=== PATIENT | male | born 1990 | race Caucasian/White ===

== ENCOUNTER → 2017-01-23 | Outpatient (CLI) | payer OTHER ==
--- NOTE | 2017-01-23 13:12 | RAD ---
EXAM: Right lower extremity venous Doppler. HISTORY: Right lower extremity pain/swelling. History of portal vein thrombosis. COMPARISON: None. FINDINGS: Grayscale and Doppler analysis of the right lower extremity deep venous system was performed with graded compression and augmentation. The common femoral, greater saphenous, superficial femoral, popliteal and calf veins were assessed. There is occlusive thrombus within the mid superficial femoral vein extending through the popliteal vein to the posterior tibial vein. There is no thrombus more proximally. IMPRESSION: 1. Occlusive thrombus within the mid superficial femoral vein extending to the posterior tibial veins. These findings were called to Dr. Degroot by Dev Yeboah on 01/23/2017 at 1300.
== END | disposition home or self-care (01) ==
LOC: US 12:15
PROVIDERS: ATTEND Physician Assistant Medical
DX: I81 Portal vein thrombosis (principal); R60.0 Localized edema; L53.9 Erythematous condition, unspecified
CPT/HCPCS: 93971